=== PATIENT | male | born 2000 | race Caucasian/White ===

== ENCOUNTER 2019-05-19 08:56 | Observation (INO) ==
[2019-05-19] MEDS ORDERED: SODIUM CHLORIDE 0.9% 1000ML 1,000 ML IV SCH (09:30)
[2019-05-19 09:38] LABS: Basophils # (auto) 0.02 K/uL (0-0.2); Basophils % (auto) 0.2 %; Eosinophils # (auto) 0.03 K/uL (0-0.5); Eosinophils % (auto) 0.3 %; Hematocrit (blood only) 44.2 % (42-52); Hemoglobin 15.7 g/dL (14.0-18.0); Immature Granulocytes # (auto) 0.03 K/uL (0.00-0.02); Immature Granulocytes % (auto) 0.3 %; Lymphocytes # (auto) 1.35 K/uL (1.2-3.4); Lymphocytes % (auto) 11.5 %; Mean Corpuscular Hgb Conc 35.5 g/dL (32-36); Mean Corpuscular Volume 88.6 fL (80-100); Mean Platelet Volume 9.7 fL (7.4-10.4); Monocytes # (auto) 1.07 K/uL (0.11-0.59); Monocytes % (auto) 9.1 %; Neutrophils % (auto) 78.6 %; Platelet Count 198 K/uL (130-400); RDW Coefficient of Variation 12.3 % (11.5-14.5); RDW Standard Deviation 38.9 fL (36.4-46.3); Red Blood Count 4.99 M/uL (4.7-6.1)
[2019-05-19 09:51] LABS: iSTAT Creatinine 1.2 mg/dl; iSTAT Ionized Calcium 1.3 mmol/l
[2019-05-19 09:53] LABS: Albumin Level 4.8 gm/dl (3.4-5.0); BUN Creatinine Ratio 14.8 (10-20); Calcium 9.8 mg/dl (8.5-10.1); Est GFR (African American) 97.3
[2019-05-19 09:56] LABS: Albumin Globulin Ratio 1.5 (0.9-2); Bilirubin,Total 1.5 mg/dl (0.2-1); Globulin 3.3 gm/dl (2.5-4.0); Total Protein 8.1 gm/dl (6.4-8.2)
[2019-05-19 10:37] LABS: Appearance Urine Clear (Clear); Bilirubin Urine Negative (Negative); Blood Urine Negative (Negative); Color Urine Yellow; Glucose Urine UA Negative (Negative); Ketones Urine Negative (Negative); Leukocyte Esterase Urine Negative (Negative); Nitrite Urine Negative (Negative); Protein Urine Negative (Negative); Specific Gravity Urine 1.009 (1.000-1.030); Urobilinogen Urine Negative (Negative); pH Urine 7.5 (4.5-7.5)
[2019-05-19] MEDS ORDERED: IOVERSOL 100ml IV PRN (10:47)
--- NOTE | 2019-05-19 10:59 | CT Scan Report ---
CT abd pelvis IV con only CLINICAL HISTORY: Right lower quadrant abdominal pain COMPARISON STUDY: None. TECHNIQUE: The patient was scanned in a dynamic helical fashion during intravenous administration of 93 cc of Optiray 320. A dose lowering technique was utilized adhering to the principles of ALARA. CT DOSE: 448.86 mGy.cm FINDINGS: Lower chest: The heart is normal in size and configuration, without pericardial effusion. The lung ba ses and pleural spaces are clear. Liver: The contrast-enhanced liver is normal in size, contour, and attenuation. There is no intrahepa tic biliary ductal dilatation. The hepatic veins and portal veins are patent. Gallbladder: Unremarkable. Spleen: The spleen is the upper limits of normal in size for age measuring 12.9 cm Pancreas: Unremarkable. Adrenal glands: Unremarkable. Kidneys: There is symmetric renal cortical enhancement. The kidneys are normal in size without hydron ephrosis. Bowel: There are no transition zones indicate bowel obstruction. There is no evidence of acute divert iculitis. There is a dilated thick-walled appendix measuring 12 mm in diameter. There is mild periapp endiceal infiltration. The findings are indicative of acute appendicitis. Peritoneum: There is trace free pelvic fluid present. Vasculature: The abdominal aorta is normal in course and caliber. Adenopathy: None. Pelvic viscera: The bladder, and pelvic viscera are unremarkable. Skeletal structures: No destructive osseous lesions are seen. IMPRESSION: 1. Dilated thick-walled appendix measuring 12 mm in diameter. There is mild periappendiceal infiltrat ion. The findings are indicative of acute appendicitis. Electronically signed by: Lam Owusu M.D. 05/19/2019 10:58 AM
--- NOTE | 2019-05-19 11:48 | Surgery Consultation ---
Date of Consultation May 19, 2019 Assessment & Plan (1) Acute appendicitis: pt is a 19 year-old male who presents to Er with one day history acute abdominal pain, CT scan dx acute appendicitis Plan, I recommend to do laparoscopic appendectomy, possible open, D/W benefits, risk and alternatives of safia surgery, the risks- infection, bleeding, injury bowel, abscess, pt understood, he agrees with the surgery, I answered all questions, History of Present Illness History of Present Illness CC: abdominal pain, HPI: pt is 19 year-old male who presents to ER with one day history abdominal pain, with some nausea, no vomiting, the pain is located at RLQ area, pt denies fever, no diarrhea, pt had CT scan Dx acute appendicitis, pt is health in the past. Allergies Allergy/AdvReac Type Severity Reaction Status Date / Time No Known Allergies Allergy Verified 05/19/19 09:59 Home Medications Home Medications Medication Instructions Recorded Confirmed Type No Known Home Medications 12/08/18 12/08/18 History ibuprofen 200 mg PO Q6H PRN 05/19/19 05/19/19 History Patient History Medical History No active medical problems (Acute) Social History Preferred Language: Ukrainian Feels Safe at Home: Yes Smoking Status: Never smoker Review of Systems Constitutional: as per Subjective / HPI Ear, Nose, Mouth, Throat: as per Subjective / HPI Respiratory: as per Subjective / HPI Cardiovascular: as per Subjective / HPI Gastrointestinal: as per Subjective / HPI Genitourinary: + as per Subjective / HPI Integumentary: as per Subjective / HPI Neurologic: as per Subjective / HPI Psychiatric: as per Subjective / HPI Endocrine: as per Subjective / HPI Hematologic / Lymphatic: as per Subjective / HPI Physical Exam Constitutional: WD/WN, vitals as above well developed and well nourished Neck: trachea midline, no thyromegaly Respiratory: normal respiratory effort, lungs clear to auscultation normal respiratory effort Cardiovascular: RRR, no murmur, no edema Rate/Rhythm: regular rate and regular rhythm Heart Sounds: normal S1 and normal S2 Gastrointestinal (Abdomen): Percussion/Palpation: + abdomen tender and abdomen soft tenderness at RLQ, no rebound pain, no diatend, BS + Musculoskeletal: no cyanosis or clubbing, extremities motor strength 5/5 Neurologic: awake Psychiatric: Orientation: alert and oriented x 3 Results & Data Vital Signs (Past 12 Hours) Vital Signs Temp Pulse Resp BP Pulse Ox 05/19/19 11:38 100 05/19/19 11:30 88 14 137/75 99 05/19/19 11:01 64 10 L 100 05/19/19 11:00 59 L 17 122/55 L 100 05/19/19 10:49 66 12 121/76 97 05/19/19 10:31 49 L 13 100 05/19/19 10:30 57 L 12 116/64 100 05/19/19 10:09 50 L 18 98 05/19/19 10:06 64 12 99 05/19/19 10:01 46 L 14 125/61 98 05/19/19 09:13 36.7 C 78 18 135/77 97 Laboratory Results Abnormal lab results 05/19/19 05/19/19 05/19/19 Range/Units 09:30 09:30 09:36 WBC 11.70 H (4.8-10.8) K/uL Immature Gran # (Auto) 0.03 H (0.00-0.02) K/uL Neut # (Auto) 9.20 H (1.4-6.5) K/uL [place] # (Auto) 1.07 H (0.11-0.59) K/uL POC BUN 20 H (7-18) mg/dl Total Bilirubin 1.5 H (0.2-1) mg/dl Diagnostic Findings CT abd pelvis IV con only CLINICAL HISTORY: Right lower quadrant abdominal pain COMPARISON STUDY: None. TECHNIQUE: The patient was scanned in a dynamic helical fashion during intravenous administration of 93 cc of Optiray 320. A dose lowering technique was utilized adhering to the principles of ALARA. CT DOSE: 448.86 mGy.cm FINDINGS: Lower chest: The heart is normal in size and configuration, without pericardial effusion. The lung bases and pleural spaces are clear. Liver: The contrast-enhanced liver is normal in size, contour, and attenuation. There is no intrahepatic biliary ductal dilatation. The hepatic veins and portal veins are patent. Gallbladder: Unremarkable. Spleen: The spleen is the upper limits of normal in size for age measuring 12.9 cm Pancreas: Unremarkable. Adrenal glands: Unremarkable. Kidneys: There is symmetric renal cortical enhancement. The kidneys are normal in size without hydronephrosis. Bowel: There are no transition zones indicate bowel obstruction. There is no evidence of acute diverticulitis. There is a dilated thick-walled appendix measuring 12 mm in diameter. There is mild periappendiceal infiltration. The findings are indicative of acute appendicitis. Peritoneum: There is trace free pelvic fluid present. Vasculature: The abdominal aorta is normal in course and caliber. Adenopathy: None. Pelvic viscera: The bladder, and pelvic viscera are unremarkable. Skeletal structures: No destructive osseous lesions are seen. IMPRESSION: 1. Dilated thick-walled appendix measuring 12 mm in diameter. There is mild periappendiceal infiltration. The findings are indicative of acute appendicitis.
[2019-05-19] MEDS ORDERED: cefOXitin 2,000 MG/60 ML BAG IV STA (11:52)
--- NOTE | 2019-05-19 11:52 | History & Physical Bridge Note ---
Date of Service May 19, 2019 History & Physical Bridge Note I have examined the patient, reviewed the History & Physical and in the interval since the performance of the History & Physical I have noted the following changes of clinical significance: no changes noted
[2019-05-19] MEDS ORDERED: cefOXitin 2,000 MG in DEXTROSE 5% 50 ML IV SCH (12:00)
--- NOTE | 2019-05-19 13:11 | Emergency Department Note ---
Entered by Tamie Dominguez acting as a scribe for Hollis Goodwin DO History of Present Illness General Chief complaint: Abdominal Pain Stated complaint: ABDOMINAL PAIN Source: patient History of Present Illness Provider complaint: abdominal pain Onset (ago): day(s) (last night) Location: abdomen Pain Consistency: + other (waxing and waning) Maximum Pain Intensity: 3 Quality: + other (pain) Associated symptoms: + denies other symptoms (back pain, blood in his urine, testicular pain); no fever/chills, no nausea/vomiting and no rash The patient is a 19 year old male who presents to the Emergency Department with complaints of waxing and waning abdominal pain that began last night. He states that certain movements exacerbate it. He denies having back pain, testicular pain, or blood in his urine. He also denies rashes, fevers, nausea, and vomiting. He states that his last bowel movement was shortly prior to arrival and states that it was normal. The patient states that he was seen at [facility] and was referred for a CT scan. The patient states that he does not take any medications daily. He denies alcohol and tobacco use. Home Medications Home Medications Medication Instructions Recorded Confirmed Type No Known Home Medications 12/08/18 12/08/18 History ibuprofen 200 mg PO Q6H PRN 05/19/19 05/19/19 History Allergies Allergy/AdvReac Type Severity Reaction Status Date / Time No Known Allergies Allergy Verified 05/19/19 09:59 Past Med/Surg History Medical History Acute appendicitis No active medical problems (Acute) No pertinent past medical history Family History Other Coronary heart disease Myocardial infarction Social History Preferred Language: Azeri Feels Safe at Home: Yes Smoking Status: Never smoker Review of Systems See HPI for pertinent positives & negatives. and A total of 10 systems reviewed and were otherwise negative Physical Exam Vital Signs Vital Signs - 24 hr 05/19/19 09:13 05/19/19 10:01 05/19/19 10:06 Temperature 36.7 C Temperature Source Oral Sepsis Recent Fever Within 48 Hours No Sepsis Action Taken by Nursing No Action Required Pulse Rate 78 46 L 64 Pulse Rate [Apical] Pulse Rate [Left Finger] Pulse Rate from SpO2 Sensor 50 L 61 Pulse Rhythm Pulse Rhythm [Apical] Pulse Rhythm [Left Finger] Pulse Strength [Left Finger] Respiratory Rate 18 14 12 Respiratory Effort / Characteristics Respiratory Depth Respiratory Pattern Blood Pressure 135/77 125/61 Blood Pressure [Right Arm] Blood Pressure Mean 96 82 Blood Pressure Mean [Right Arm] Blood Pressure Position Sitting Blood Pressure Position [Right Arm] Pulse Oximetry 97 98 99 Oxygen Delivery Method Oxygen Flow Rate 05/19/19 10:09 05/19/19 10:30 05/19/19 10:31 Temperature Temperature Source Sepsis Recent Fever Within 48 Hours Sepsis Action Taken by Nursing Pulse Rate 50 L 57 L 49 L Pulse Rate [Apical] Pulse Rate [Left Finger] Pulse Rate from SpO2 Sensor 59 L 48 L Pulse Rhythm Regular Pulse Rhythm [Apical] Pulse Rhythm [Left Finger] Pulse Strength [Left Finger] Respiratory Rate 18 12 13 Respiratory Effort / Characteristics Respiratory Depth Respiratory Pattern Blood Pressure 116/64 Blood Pressure [Right Arm] Blood Pressure Mean 81 Blood Pressure Mean [Right Arm] Blood Pressure Position Blood Pressure Position [Right Arm] Pulse Oximetry 98 100 100 Oxygen Delivery Method Room Air Oxygen Flow Rate 05/19/19 10:49 05/19/19 11:00 05/19/19 11:01 Temperature Temperature Source Sepsis Recent Fever Within 48 Hours Sepsis Action Taken by Nursing Pulse Rate 66 59 L 64 Pulse Rate [Apical] Pulse Rate [Left Finger] Pulse Rate from SpO2 Sensor 75 57 L 65 Pulse Rhythm Pulse Rhythm [Apical] Pulse Rhythm [Left Finger] Pulse Strength [Left Finger] Respiratory Rate 12 17 10 L Respiratory Effort / Characteristics Respiratory Depth Respiratory Pattern Blood Pressure 121/76 122/55 L Blood Pressure [Right Arm] Blood Pressure Mean 91 77 Blood Pressure Mean [Right Arm] Blood Pressure Position Blood Pressure Position [Right Arm] Pulse Oximetry 97 100 100 Oxygen Delivery Method Oxygen Flow Rate 05/19/19 11:30 05/19/19 11:38 05/19/19 12:00 Temperature Temperature Source Sepsis Recent Fever Within 48 Hours Sepsis Action Taken by Nursing Pulse Rate 88 Pulse Rate [Apical] Pulse Rate [Left Finger] Pulse Rate from SpO2 Sensor 86 85 69 Pulse Rhythm Pulse Rhythm [Apical] Pulse Rhythm [Left Finger] Pulse Strength [Left Finger] Respiratory Rate 14 Respiratory Effort / Characteristics Respiratory Depth Respiratory Pattern Blood Pressure 137/75 132/78 Blood Pressure [Right Arm] Blood Pressure Mean 95 96 Blood Pressure Mean [Right Arm] Blood Pressure Position Blood Pressure Position [Right Arm] Pulse Oximetry 99 100 98 Oxygen Delivery Method Oxygen Flow Rate 05/19/19 12:01 05/19/19 12:30 05/19/19 12:31 Temperature Temperature Source Sepsis Recent Fever Within 48 Hours Sepsis Action Taken by Nursing Pulse Rate Pulse Rate [Apical] Pulse Rate [Left Finger] Pulse Rate from SpO2 Sensor 74 59 L 66 Pulse Rhythm Pulse Rhythm [Apical] Pulse Rhythm [Left Finger] Pulse Strength [Left Finger] Respiratory Rate Respiratory Effort / Characteristics Respiratory Depth Respiratory Pattern Blood Pressure 119/64 Blood Pressure [Right Arm] Blood Pressure Mean 82 Blood Pressure Mean [Right Arm] Blood Pressure Position Blood Pressure Position [Right Arm] Pulse Oximetry 98 99 Oxygen Delivery Method Oxygen Flow Rate 05/19/19 13:15 05/19/19 15:23 Temperature 36.9 C 36.7 C Temperature Source Oral Temporal Artery Scan Sepsis Recent Fever Within 48 Hours Sepsis Action Taken by Nursing Pulse Rate Pulse Rate [Apical] 62 Pulse Rate [Left Finger] 74 Pulse Rate from SpO2 Sensor Pulse Rhythm Pulse Rhythm [Apical] Regular Pulse Rhythm [Left Finger] Regular Pulse Strength [Left Finger] Normal Respiratory Rate 18 12 Respiratory Effort / Characteristics Non-Labored Spontaneous Non-Labored Spontaneous Respiratory Depth Normal Normal Respiratory Pattern Regular Regular Blood Pressure Blood Pressure [Right Arm] 139/76 109/68 Blood Pressure Mean Blood Pressure Mean [Right Arm] 97 81 Blood Pressure Position Blood Pressure Position [Right Arm] Sitting Lying Pulse Oximetry 100 98 Oxygen Delivery Method Room Air Oxymask Oxygen Flow Rate 10 GENERAL: Patient is awake, alert, and in no acute distress.Patient is resting comfortably and showing no signs of anxiety EYES: The conjunctivae are clear. The pupils are round and reactive. EARS, NOSE, MOUTH AND THROAT: The nose is without any evidence of any deformity. Mucous membranes are moist.Tongue is midline NECK: The neck is nontender and supple. RESPIRATORY: Normal respiratory effort is noted. There is no evidence of wheezing rhonchi or rales to auscultation. CARDIOVASCULAR: Regular rate and rhythm noted. There no murmurs rubs or gallops normal S1 normal S2 GASTROINTESTINAL: The abdomen is soft. Bowel sounds are present in all quadrants. Right lower quadrant tenderness to palpation. Guarding in the right lower quadrant. BACK: No midline tenderness or or step-off noted range of motion in flexion extension as well as rotation no signs of muscle spasm noted. MUSCULOSKELETAL/EXTREMITIES: There is no evidence of gross deformity. Full range of motion is noted in the hips and shoulders. SKIN: There is no obvious evidence of any rash. There are no petechiae, pallor o r cyanosis noted. NEUROLOGIC: Patient is awake alert and oriented x3. Course 0918: The patient was evaluated in room B2. A history and physical were performed. 1109: I updated the patient. 1116: I discussed the patient's case with Dr. Kumar-General Surgery who will come see the patient. 1130: The patient will be evaluated by Dr. Kumar. Consultations Consultation #1: Dr. Kumar-General Surgery Time: 11:16 Administered Medications Lactated Ringer's (Lr) 1,000 mls @ 80 mls/hr IV .[id number] MYNOR Stop: 06/18/19 16:31 Last Admin: 05/19/19 17:14 Dose: 80 mls/hr Documented by: [id number] Discontinued Medications Bacitracin (Bacitracin) Confirm Administered Dose 45 appln .ROUTE .STK-MED ONE Stop: 05/19/19 14:02 Last Admin: 05/19/19 15:00 Dose: 45 appln Documented by: [id number] Bupivacaine HCl (Marcaine 0.5% Mpf) Confirm Administered Dose 30 ml .ROUTE .STK- MED ONE Stop: 05/19/19 14:02 Last Admin: 05/19/19 15:00 Dose: 30 ml Documented by: [id number] Sodium Chloride (Nss 1000ml) 1,000 mls @ 999 mls/hr IV .[id number] MYNOR Stop: 05/19/19 10:30 Last Infusion: 05/19/19 11:25 Dose: 0 mls/hr Documented by: [id number] Admin: 05/19/19 10:16 Dose: 999 mls/hr Documented by: [id number] Cefoxitin Sodium 2,000 mg/ (Dextrose) 60 mls @ 120 mls/hr IV PREOP MYNOR Stop: 05/19/19 18:00 Last Infusion: 05/19/19 17:44 Dose: 0 mls/hr Documented by: [id number] Admin: 05/19/19 14:15 Dose: 120 mls/hr Documented by: [id number] Ioversol (Optiray 320 100ml) 93 ml IV ONCE PRN PRN Reason: Interaction Checking Stop: 05/23/19 10:46 Last Admin: 05/19/19 10:48 Dose: 93 ml Documented by: [id number] Lidocaine HCl (Xylocaine 1% (Local)) Confirm Administered Dose 20 ml .ROUTE .[employer] ONE Stop: 05/19/19 14:02 Last Admin: 05/19/19 15:01 Dose: 20 ml Documented by: [id number] Medical Decision Making Differential Diagnosis Differential diagnosis: Etiologies such as biliary colic, cholecystitis, hepatitis, pancreatitis, cardiac disease, pancreatitis, gastritis, peptic ulcer disease, appendicitis, cystitis, diverticulitis, mesenteric ischemia, inflammatory bowel disease, ileus, bowel obstruction, testicular torsion, aortic pathology, shingles, as well as others were considered. Medical Records Attestation: I reviewed the patient's medical records. Home Medications Current Medication List: was personally reviewed by me Laboratory Data Attestation: I reviewed the patient's lab results. Result diagrams: 05/19/19 09:30 05/19/19 09:30 Lab Results 05/19/19 05/19/19 05/19/19 Range/Units 09:30 09:30 09:30 WBC 11.70 H (4.8-10.8) K/uL RBC 4.99 (4.7-6.1) M/uL Hgb 15.7 (14.0-18.0) g/dL POC Hgb (14.0-18.0) g/dl Hct 44.2 (42-52) % POC Hct (42-52) % MCV 88.6 (80-100) fL MCH 31.5 (25-34) pg MCHC 35.5 (32-36) g/dL RDW Std Deviation 38.9 (36.4-46.3) fL RDW Coeff of Gino 12.3 (11.5-14.5) % Plt Count 198 (130-400) K/uL MPV 9.7 (7.4-10.4) fL Immature Gran % (Auto) 0.3 % Neut % (Auto) 78.6 % Lymph % (Auto) 11.5 % [place] % (Auto) 9.1 % Eos % (Auto) 0.3 % Baso % (Auto) 0.2 % Immature Gran # (Auto) 0.03 H (0.00-0.02) K/uL Neut # (Auto) 9.20 H (1.4-6.5) K/uL Lymph # (Auto) 1.35 (1.2-3.4) K/uL [place] # (Auto) 1.07 H (0.11-0.59) K/uL Eos # (Auto) 0.03 (0-0.5) K/uL Baso # (Auto) 0.02 (0-0.2) K/uL POC Sodium (135-144) mEq/L Sodium 139 (136-145) mmol/L POC Potassium (3.3-5.0) mEq/L Potassium 4.0 (3.5-5.1) mmol/L POC Chloride (101-112) mEq/L Chloride 103 (98-107) mmol/L Carbon Dioxide 30 (21-32) mmol/L POC Total CO2 (24-31) mEq/l Anion Gap 6.0 (3-11) POC Anion Gap (16-25) mmol/L POC BUN (7-18) mg/dl BUN 18 (7-18) mg/dl Creatinine 1.23 (0.6-1.4) mg/dl POC Creatinine mg/dl Est Cr Clr Drug Dosing 102.0 ml/min Est GFR ( Amer) 97.3 Est GFR (Non-Af Amer) 84.0 BUN/Creatinine Ratio 14.8 (10-20) Glucose 92 (70-99) mg/dl POC Glucose (other) (70-99) mg/dl Calcium 9.8 (8.5-10.1) mg/dl POC Ioniz Calcium Camilla mmol/l Total Bilirubin 1.5 H (0.2-1) mg/dl AST 19 (15-37) U/L ALT 23 (12-78) U/L Alkaline Phosphatase 82 (45-117) U/L Total Protein 8.1 (6.4-8.2) gm/dl Albumin 4.8 (3.4-5.0) gm/dl Globulin 3.3 (2.5-4.0) gm/dl Albumin/Globulin Ratio 1.5 (0.9-2) Lipase 128 (73-393) U/L Urine Color Yellow Urine Appearance Clear (Clear) Urine pH 7.5 (4.5-7.5) Ur Specific [place] 1.009 (1.000-1.030) Urine Protein Negative (Negative) Urine Glucose (UA) Negative (Negative) Urine Ketones Negative (Negative) Urine Blood Negative (Negative) Urine Nitrite Negative (Negative) Urine Bilirubin Negative (Negative) Urine Urobilinogen Negative (Negative) Ur Leukocyte Esterase Negative (Negative) 05/19/19 Range/Units 09:36 WBC (4.8-10.8) K/uL RBC (4.7-6.1) M/uL Hgb (14.0-18.0) g/dL POC Hgb 16.0 (14.0-18.0) g/dl Hct (42-52) % POC Hct 47 (42-52) % MCV (80-100) fL MCH (25-34) pg MCHC (32-36) g/dL RDW Std Deviation (36.4-46.3) fL RDW Coeff of Gino (11.5-14.5) % Plt Count (130-400) K/uL MPV (7.4-10.4) fL Immature Gran % (Auto) % Neut % (Auto) % Lymph % (Auto) % [place] % (Auto) % Eos % (Auto) % Baso % (Auto) % Immature Gran # (Auto) (0.00-0.02) K/uL Neut # (Auto) (1.4-6.5) K/uL Lymph # (Auto) (1.2-3.4) K/uL [place] # (Auto) (0.11-0.59) K/uL Eos # (Auto) (0-0.5) K/uL Baso # (Auto) (0-0.2) K/uL POC Sodium 140 (135-144) mEq/L Sodium (136-145) mmol/L POC Potassium 4.0 (3.3-5.0) mEq/L Potassium (3.5-5.1) mmol/L POC Chloride 101 (101-112) mEq/L Chloride (98-107) mmol/L Carbon Dioxide (21-32) mmol/L POC Total CO2 27 (24-31) mEq/l Anion Gap (3-11) POC Anion Gap 18.0 (16-25) mmol/L POC BUN 20 H (7-18) mg/dl BUN (7-18) mg/dl Creatinine (0.6-1.4) mg/dl POC Creatinine 1.2 mg/dl Est Cr Clr Drug Dosing ml/min Est GFR ( Amer) Est GFR (Non-Af Amer) BUN/Creatinine Ratio (10-20) Glucose (70-99) mg/dl POC Glucose (other) 92 (70-99) mg/dl Calcium (8.5-10.1) mg/dl POC Ioniz Calcium Camilla 1.30 mmol/l Total Bilirubin (0.2-1) mg/dl AST (15-37) U/L ALT (12-78) U/L Alkaline Phosphatase (45-117) U/L Total Protein (6.4-8.2) gm/dl Albumin (3.4-5.0) gm/dl Globulin (2.5-4.0) gm/dl Albumin/Globulin Ratio (0.9-2) Lipase (73-393) U/L Urine Color Urine Appearance (Clear) Urine pH (4.5-7.5) Ur Specific [place] (1.000-1.030) Urine Protein (Negative) Urine Glucose (UA) (Negative) Urine Ketones (Negative) Urine Blood (Negative) Urine Nitrite (Negative) Urine Bilirubin (Negative) Urine Urobilinogen (Negative) Ur Leukocyte Esterase (Negative) Imaging Data Radiologist's Impression: Radiology results as stated below per my review and the radiologist's interpretation: CT abd pelvis IV con only CLINICAL HISTORY: Right lower quadrant abdominal pain COMPARISON STUDY: None. TECHNIQUE: The patient was scanned in a dynamic helical fashion during intravenous administration of 93 cc of Optiray 320. A dose lowering technique was utilized adhering to the principles of ALARA. CT DOSE: 448.86 mGy.cm FINDINGS: Lower chest: The heart is normal in size and configuration, without pericardial effusion. The lung bases and pleural spaces are clear. Liver: The contrast-enhanced liver is normal in size, contour, and attenuation. There is no intrahepatic biliary ductal dilatation. The hepatic veins and portal veins are patent. Gallbladder: Unremarkable. Spleen: The spleen is the upper limits of normal in size for age measuring 12.9 cm Pancreas: Unremarkable. Adrenal glands: Unremarkable. Kidneys: There is symmetric renal cortical enhancement. The kidneys are normal in size without hydronephrosis. Bowel: There are no transition zones indicate bowel obstruction. There is no evidence of acute diverticulitis. There is a dilated thick-walled appendix measuring 12 mm in diameter. There is mild periappendiceal infiltration. The findings are indicative of acute appendicitis. Peritoneum: There is trace free pelvic fluid present. Vasculature: The abdominal aorta is normal in course and caliber. Adenopathy: None. Pelvic viscera: The bladder, and pelvic viscera are unremarkable. Skeletal structures: No destructive osseous lesions are seen. IMPRESSION: 1. Dilated thick-walled appendix measuring 12 mm in diameter. There is mild periappendiceal infiltration. The findings are indicative of acute appendicitis. Electronically signed by: Lam Owusu M.D. 05/19/2019 10:58 AM Blood Pressure Blood Pressure Findings: Normal blood pressure MDM Narrative The patient is a 19-year-old male who presented to the emergency department for an evaluation of right-sided abdominal pain. The patient was initially seen at [facility] for similar complaints. He was sent to the emergency department for further work-up due to concern for appendicitis. The patient's history and physical exam appear to be consistent with appendicitis. White blood cell count was mildly elevated. For this reason CT the abdomen and pelvis was it appeared to be consistent with acute appendicitis. I discussed the patient's laboratory and radiographic studies with him. He was treated with IV fluids but did not wish to have any pain medication at this time. Because of his findings I discussed his case with the on-call general surgeon. They have agreed to evaluate the patient in the emergency department for further management and disposition. Impression & Plan Acute appendicitis Discharge Plan Visit Data Chief Complaint: Abdominal Pain Stated Complaint: ABDOMINAL PAIN ED Provider: Hollis Goodwin Discharge Problem: Acute appendicitis Patient Disposition: Being Evaluated by Surgeon Discharge Instructions Interventions: ED Discharge Assessment Last Done: 05/19/19 13:09 Discharge Problem: Acute appendicitis Qualifiers: Acute appendicitis type: unspecified acute appendicitis type Qualified Code(s): K35.80 - Unspecified acute appendicitis The scribe's documentation has been prepared under my direction and personally reviewed by me in its entirety. I confirm that the note above accurately reflects all work, treatment, procedures, and medical decision making performed by me.
--- NOTE | 2019-05-19 13:18 | Anesthesiology Consultation ---
Date of Service May 19, 2019 Assessment & Plan (1) Encounter for pre-operative examination: Chart Review Chart Review: Acceptable Risk for Surgery and Patient NOT seen in Pre Admission Testing Consults Requested none ASA [id number] Proposed Anesthesia Anesthesia Type: General History Surgery Operation Date: 05/19/19 18:45 Proposed Procedures p Laparoscopic Appendectomy - Farshad Kumar MD Height/Weight Height: 5 ft 11 in Weight: 89.8 kg Allergies Allergy/AdvReac Type Severity Reaction Status Date / Time No Known Allergies Allergy Verified 05/19/19 09:59 Medications Home Medications Medication Instructions Recorded Confirmed Last Taken No Known Home Medications 12/08/18 12/08/18 Unknown ibuprofen 200 mg PO Q6H PRN 05/19/19 05/19/19 05/18/19 23:00 600mg Active Medications Generic Name Dose Route Start Last Admin Trade Name Freq PRN Reason Stop Dose Admin Ioversol 93 ml 05/19/19 10:47 05/19/19 10:48 Optiray 320 100ml IV 05/23/19 10:46 93 ml ONCE PRN Administration Interaction Checking NPO Date Last Intake of Fluids: 05/19/19 Time Last Intake of Fluids: 07:30 Date Last Intake of Solids: 05/19/19 Time Last Intake of Solids: 07:30 Past Medical History Medical History Acute appendicitis No active medical problems (Acute) No pertinent past medical history Past Family History Family History Other Coronary heart disease Myocardial infarction Social History Smoking Status: Never smoker Physical Exam Vital Signs Last Vital Signs Temp 36.7 C 05/19/19 09:13 Pulse 88 05/19/19 11:30 Resp 14 05/19/19 11:30 BP 119/64 05/19/19 12:30 Pulse Ox 99 05/19/19 12:31 Testing Laboratory Results 05/19/19 09:30 05/19/19 09:30 Urine Color Yellow 05/19/19 09:30 Urine Appearance Clear (Clear) 05/19/19 09:30 Urine pH 7.5 (4.5-7.5) 05/19/19 09:30 Ur Specific [place] 1.009 (1.000-1.030) 05/19/19 09:30 Urine Protein Negative (Negative) 05/19/19 09:30 Urine Glucose (UA) Negative (Negative) 05/19/19 09:30 Urine Ketones Negative (Negative) 05/19/19 09:30 Urine Nitrite Negative (Negative) 05/19/19 09:30 Ur Leukocyte Esterase Negative (Negative) 05/19/19 09:30 05/19/19 09:36 POC Glucose (other) 92
[2019-05-19] MEDS ORDERED: GLYCOPYRROLATE 0.2 MG/ML VIAL ONE (13:33)
[2019-05-19] MEDS ORDERED: PROPOFOL IV EMULSION 10 MG/ML 20 ML VIAL IV ONE (13:33)
[2019-05-19] MEDS ORDERED: DEXAMETHASONE SOD INJ 4 MG/ML VIAL ONE (13:33)
[2019-05-19] MEDS ORDERED: MIDAZOLAM HCL 1 MG/ML 2ML VIAL ONE (13:33)
[2019-05-19] MEDS ORDERED: fentaNYL citrate 100 MCG/2 ML VIAL ONE (13:33)
[2019-05-19] MEDS ORDERED: ONDANSETRON INJ 2 MG/ML 2 ML VIAL ONE (13:33)
[2019-05-19] MEDS ORDERED: LIDOCAINE HCL 2% 2 ML VIAL/AMP(20MG/ML) INFIL ONE (13:33)
[2019-05-19] MEDS ORDERED: NEOSTIGMINE METHYLSULFATE 5 MG/5 ML SYR ONE (13:33)
[2019-05-19] MEDS ORDERED: BACITRACIN OINT 15 GM TUBE ONE (14:01)
[2019-05-19] MEDS ORDERED: BUPIVACAINE 0.5 % 5 MG/1 ML MPF 30ML VIAL ONE (14:01)
[2019-05-19] MEDS ORDERED: LIDOCAINE HCL 1% 20 ML VIAL ONE (14:01)
[2019-05-19] MEDS ORDERED: ePHEDrine sulfate 50 MG/ML AMP IV PRN (14:29)
[2019-05-19] MEDS ORDERED: HYDROmorphone INJ 2 MG/ML SYR/VIAL IV PRN (14:29)
[2019-05-19] MEDS ORDERED: ATROPINE SULFATE 0.1 MG/ML 10ML SYR IV PRN (14:29)
[2019-05-19] MEDS ORDERED: ROCURONIUM BROMIDE 10 MG/ML 5 ML VIAL ONE (14:53)
[2019-05-19] MEDS ORDERED: KETOROLAC 30 MG/ML VIAL ONE (14:53)
[2019-05-19] MEDS ORDERED: SUCCINYLCHOLINE CHLORIDE 20 MG/ML 10 ML VIAL ONE (14:55)
--- NOTE | 2019-05-19 14:59 | Post Operative Brief Note ---
Immediate Post Op Note v1 Date of Surgery May 19, 2019 Pre & Post Diagnosis Operation Date: 05/19/19 18:45 pre-op diagnosis: acute appendicitis post-op diagnosis: acute appendicitis Procedure Operation Date: 05/19/19 18:45 Actual Procedures p Laparoscopic Appendectomy(Not Applicable) - Farshad Kumar MD Surgeon Farshad Kumar MD Set Up And Lay Out Inspector SPENSER Krueger Estimated Blood Loss 5 Findings Consistent with Post-Op Diagnosis Fluids 1000ml Specimens appendix Anesthesia Type General Complications none Disposition Accompanied Patient To Recovery: Yes Disposition: Recovery Room Overlapping Procedure I was immediately available: during the entire case.
[2019-05-19] MEDS ORDERED: OXYCODONE/ACETAMINOPHEN 5mg/325mg TAB PO PRN (15:09)
[2019-05-19] MEDS ORDERED: ONDANSETRON INJ 2 MG/ML 2 ML VIAL IV PRN (16:32)
[2019-05-19] MEDS ORDERED: ACETAMINOPHEN 325 MG TAB PO PRN (16:32)
[2019-05-19] MEDS ORDERED: HYDROmorphone INJ 0.5 MG/0.5 ML SYR IV PRN (16:32)
[2019-05-19] MEDS: LACTATED RINGER'S 1,000 ML IV SCH (17:14)
--- NOTE | 2019-05-19 18:20 | Anesthesiology Progress Note ---
Date of Service May 19, 2019 Anesthesia Post Procedure Vital Signs Vital Signs: Temp Pulse Pulse Pulse Pulse Resp BP 05/19/19 17:32 37.3 C 59 L 16 05/19/19 17:00 37.3 C 52 L 16 05/19/19 16:30 37.2 C 54 L 14 05/19/19 16:10 36.9 C 46 L 16 05/19/19 16:00 36.9 C 45 L 16 05/19/19 15:49 60 13 05/19/19 15:40 49 L 19 05/19/19 15:30 54 L 12 05/19/19 15:23 36.7 C 62 12 05/19/19 13:15 36.9 C 74 18 05/19/19 12:31 05/19/19 12:30 119/64 05/19/19 12:00 132/78 05/19/19 11:38 05/19/19 11:30 88 14 137/75 05/19/19 11:01 64 10 L 05/19/19 11:00 59 L 17 122/55 L 05/19/19 10:49 66 12 121/76 05/19/19 10:31 49 L 13 05/19/19 10:30 57 L 12 116/64 05/19/19 10:09 50 L 18 05/19/19 10:06 64 12 05/19/19 10:01 46 L 14 125/61 05/19/19 09:13 36.7 C 78 18 135/77 BP Pulse Ox 05/19/19 17:32 123/70 97 05/19/19 17:00 120/69 98 05/19/19 16:30 117/70 99 05/19/19 16:10 116/60 97 05/19/19 16:00 121/60 98 05/19/19 15:49 123/69 94 05/19/19 15:40 117/71 100 05/19/19 15:30 122/66 98 05/19/19 15:23 109/68 98 05/19/19 13:15 139/76 100 05/19/19 12:31 99 05/19/19 12:30 98 05/19/19 12:00 98 05/19/19 11:38 100 05/19/19 11:30 99 05/19/19 11:01 100 05/19/19 11:00 100 05/19/19 10:49 97 05/19/19 10:31 100 05/19/19 10:30 100 05/19/19 10:09 98 05/19/19 10:06 99 05/19/19 10:01 98 05/19/19 09:13 97 Pain Intensity Right Lower Abdomen: Pain Intensity: 2 Bilateral Anterior Abdomen: Pain Intensity: 2 Transfer of Care Handoff Completed per policy Notes Mental Status: alert / awake / arousable Patient Amnestic to Procedure: Yes Nausea / Vomiting: adequately controlled Pain: adequately controlled Airway Patency, RR, SpO2: stable & adequate BP & HR: stable & adequate Hydration State: stable & adequate Anesthetic Complications: no major complications apparent
[2019-05-19] MEDS: IBUPROFEN 200 MG TAB PO PRN ×2 (23:05→23:24)
--- NOTE | 2019-05-19 23:41 | Operative Report ---
DATE OF OPERATION: 05/19/2019 PREOPERATIVE DIAGNOSIS: Acute appendicitis. POSTOPERATIVE DIAGNOSIS: Acute appendicitis. SURGEON: Farshad Kumar MD PROCEDURE: Laparoscopic appendectomy. ANESTHESIA: General. ESTIMATED BLOOD LOSS: About 5 mL FINDINGS: Acute appendicitis. COMPLICATIONS: None. INDICATIONS FOR THE PROCEDURE: This is a 19-year-old gentleman who presented to ED with 1-day history of abdominal pain. The patient had a CT scan and diagnosed with acute appendicitis. I recommended to do laparoscopic appendectomy, possible open. I did talk to the patient about the benefit and risk, alternate procedure. I indicated the risks may include but not limited such as bleeding, infection, abscess, injury to the bowel. The patient understands. He signed informed consent and I answered all questions. DETAILS OF PROCEDURE: We brought the patient to the OR, put the patient in the supine position. The patient received SCD on bilateral legs to prevent DVT. Also, the patient received 2 grams cefoxitin IV for prophylactic antibiotic. The patient received general anesthesia without difficulty. Then the patient received Junior catheter insertion. The abdomen was prepped and draped in routine sterile fashion. After time out, I injected local anesthesia by using 1% lidocaine mixed with 0.5% Marcaine just above the umbilicus. Then I made a small incision just above the umbilicus, opened fascia and opened peritoneum under direct vision, put a Renay trocar in, connected to CO2 to create pneumoperitoneum. Flow rate at 6 liter per minute. Pressure not more than 14 mmHg. Once we got a nice pneumoperitoneum, we put the camera in, looked around the abdomen showed normal finding on the small bowel, large bowel; however, the appendix was significantly enlarged, inflammation confirmed diagnosis of acute appendicitis. Then, we put another two 5 mm trocar on the left lower quadrant area. Then we used a grasper to hold the appendix. I used Harmonic to take down the appendiceal, rechecked, no active bleeding. Then, we used a 45 mm Endo-SASHA staple for transection on the base of the appendix, rechecked the staple line intact. No active bleeding, no leak. Then we removed the appendix through the catcher bag. Then we reinserted Renay trocar in, connected to CO2 to create pneumoperitoneum. Again looked around the abdomen, no active bleeding, no leak from the staple line. Then we removed all trocar under direct vision. No active bleeding from the trocar sites. Pneumoperitoneum was released. Then I closed the umbilical incision, fascial layer by using #1 Vicryl [id number] x2, closed subcutaneous layer by using 2-0 Vicryl interruptedly, closed skin by using 4-0 Vicryl continuous running, closed another two 5 mm trocar site of skin only by using 4-0 Vicryl. Then we put the dressing on. The patient tolerated the procedure well. All the instrument, needle and sponge count were correct x2 at the end of case. The patient transferred to Recovery Room in stable condition. The specimen sent to Pathology. I attest to the content of the Intraoperative Record and any orders documented therein. Any exception s are noted below.
[2019-05-20] MEDS: LACTATED RINGER'S 1,000 ML IV SCH (03:27)
[2019-05-20 05:37] LABS: Hematocrit (blood only) 40.1 % (42-52); Hemoglobin 13.8 g/dL (14.0-18.0); Immature Granulocytes # (auto) 0.02 K/uL (0.00-0.02); Immature Granulocytes % (auto) 0.2 %; Lymphocytes # (auto) 0.98 K/uL (1.2-3.4); Lymphocytes % (auto) 9.9 %; Mean Corpuscular Hgb Conc 34.4 g/dL (32-36); Mean Corpuscular Volume 90.3 fL (80-100); Mean Platelet Volume 9.6 fL (7.4-10.4); Monocytes # (auto) 0.83 K/uL (0.11-0.59); Monocytes % (auto) 8.4 %; Neutrophils # (auto) 8.09 K/uL (1.4-6.5); Neutrophils % (auto) 81.5 %; Platelet Count 190 K/uL (130-400); RDW Standard Deviation 39.4 fL (36.4-46.3); Red Blood Count 4.44 M/uL (4.7-6.1); White Blood Count 9.92 K/uL (4.8-10.8)
--- NOTE | 2019-05-20 08:19 | Anesthesiology Progress Note ---
Date of Service May 20, 2019 Anesthesia Post Procedure Vital Signs Vital Signs: Temp Pulse Pulse Pulse Pulse Resp BP 05/20/19 03:21 36.6 C 58 L 18 05/19/19 23:18 37.1 C 49 L 18 05/19/19 19:30 37.0 C 55 L 16 05/19/19 18:33 37.3 C 69 16 05/19/19 17:32 37.3 C 59 L 16 05/19/19 17:00 37.3 C 52 L 16 05/19/19 16:30 37.2 C 54 L 14 05/19/19 16:10 36.9 C 46 L 16 05/19/19 16:00 36.9 C 45 L 16 05/19/19 15:49 60 13 05/19/19 15:40 49 L 19 05/19/19 15:30 54 L 12 05/19/19 15:23 36.7 C 62 12 05/19/19 13:15 36.9 C 74 18 05/19/19 12:31 05/19/19 12:30 119/64 05/19/19 12:00 132/78 05/19/19 11:38 05/19/19 11:30 88 14 137/75 05/19/19 11:01 64 10 L 05/19/19 11:00 59 L 17 122/55 L 05/19/19 10:49 66 12 121/76 05/19/19 10:31 49 L 13 05/19/19 10:30 57 L 12 116/64 05/19/19 10:09 50 L 18 05/19/19 10:06 64 12 05/19/19 10:01 46 L 14 125/61 05/19/19 09:13 36.7 C 78 18 135/77 BP Pulse Ox 05/20/19 03:21 106/58 L 98 05/19/19 23:18 119/62 95 05/19/19 19:30 112/66 97 05/19/19 18:33 126/61 98 05/19/19 17:32 123/70 97 05/19/19 17:00 120/69 98 05/19/19 16:30 117/70 99 05/19/19 16:10 116/60 97 05/19/19 16:00 121/60 98 07/15/19 15:49 123/69 94 07/15/19 15:40 117/71 100 05/19/19 15:30 122/66 98 05/19/19 15:23 109/68 98 05/19/19 13:15 139/76 100 05/19/19 12:31 99 05/19/19 12:30 98 05/19/19 12:00 98 05/19/19 11:38 100 05/19/19 11:30 99 05/19/19 11:01 100 05/19/19 11:00 100 05/19/19 10:49 97 05/19/19 10:31 100 05/19/19 10:30 100 05/19/19 10:09 98 05/19/19 10:06 99 05/19/19 10:01 98 05/19/19 09:13 97 Pain Intensity Right Lower Abdomen: Pain Intensity: 2 Bilateral Anterior Abdomen: Pain Intensity: 2 Notes Mental Status: alert / awake / arousable and participated in evaluation Nausea / Vomiting: adequately controlled Pain: adequately controlled Airway Patency, RR, SpO2: stable & adequate BP & HR: stable & adequate Hydration State: stable & adequate
--- NOTE | 2019-05-20 09:21 | Surgery Progress Note ---
Date of Service May 20, 2019 Assessment & Plan (1) Acute appendicitis: POD # 1 s/p laparoscopic appendectomy -vitals stable, afebrile - preop pain resolved, post op pain at incision sites and minimal - no n/v, tolerating diet - urinating without difficulty - leukocytosis resolved Plan: encouraged ambulating in hallway this morning d/c iv fluids and abx continue regular diet discharge home later this morning if tolerates ambulation will f/u with pcp in 1-2 weeks since lives 3-4 hours away discharge instructions/postop restrictions reviewed Discussed with Dr. Kumar who agrees with above Subjective feeling good no nausea or vomiting, tolerating diet preoperative pain resolved, postop pain at incisions and minimal. only had Aleve last night urinating okay, having some burning during urination, no frequency or urgency ambulated only to bathroom not hallway no chest pain/sob/dizziness Physical Exam Constitutional: WD/WN, vitals as above no acute distress and not ill appearing Respiratory: normal respiratory effort; no respiratory distress Gastrointestinal (Abdomen): Inspection/Auscultation: abdomen not distended Percussion/Palpation: + abdomen tender (mild at incision sites) and abdomen soft; no guarding and abdomen not rigid Skin: no rashes, warm and dry + incision (Covered with dry dressings intact) Psychiatric: A+Ox3, euthymic affect Results & Data Vital Signs (Past 12 Hours) Vital Signs Temp Pulse Pulse Resp BP Pulse Ox 05/20/19 09:14 36.6 C 46 L 58 L 18 106/58 L 98 05/20/19 03:21 36.6 C 58 L 18 106/58 L 98 05/19/19 23:18 37.1 C 49 L 18 119/62 95 Laboratory Results 05/20/19 05/19/19 05/19/19 Range/Units 05:27 09:30 09:30 WBC 9.92 (4.8-10.8) K/uL RBC 4.44 L (4.7-6.1) M/uL Hgb 13.8 L (14.0-18.0) g/dL Hct 40.1 L (42-52) % MCV 90.3 (80-100) fL MCH 31.1 (25-34) pg MCHC 34.4 (32-36) g/dL RDW Std Deviation 39.4 (36.4-46.3) fL RDW Coeff of Gino 12.0 (11.5-14.5) % Plt Count 190 (130-400) K/uL MPV 9.6 (7.4-10.4) fL Immature Gran % (Auto) 0.2 % Neut % (Auto) 81.5 % Lymph % (Auto) 9.9 % [place] % (Auto) 8.4 % Eos % (Auto) 0.0 % Baso % (Auto) 0.0 % Immature Gran # (Auto) 0.02 (0.00-0.02) K/uL Neut # (Auto) 8.09 H (1.4-6.5) K/uL Lymph # (Auto) 0.98 L (1.2-3.4) K/uL [place] # (Auto) 0.83 H (0.11-0.59) K/uL Eos # (Auto) 0.00 (0-0.5) K/uL Baso # (Auto) 0.00 (0-0.2) K/uL Total Bilirubin 1.5 H (0.2-1) mg/dl Alkaline Phosphatase 82 (45-117) U/L Total Protein 8.1 (6.4-8.2) gm/dl Globulin 3.3 (2.5-4.0) gm/dl Albumin/Globulin Ratio 1.5 (0.9-2) Urine Color Yellow Urine Appearance Clear (Clear) Urine pH 7.5 (4.5-7.5) Ur Specific [place] 1.009 (1.000-1.030) Urine Protein Negative (Negative) Urine Glucose (UA) Negative (Negative) Urine Ketones Negative (Negative) Urine Blood Negative (Negative) Urine Nitrite Negative (Negative) Urine Bilirubin Negative (Negative) Urine Urobilinogen Negative (Negative) Ur Leukocyte Esterase Negative (Negative) (1) Acute appendicitis Acute appendicitis type: unspecified acute appendicitis type Qualified Code(s): K35.80 - Unspecified acute appendicitis
--- NOTE | 2019-05-20 11:23 | Discharge Summary ---
Date of Service May 20, 2019 Admission HPI Per Admitting Provider HPI: pt is 19 year-old male who presents to ER with one day history abdominal pain, with some nausea, no vomiting, the pain is located at RLQ area, pt denies fever, no diarrhea, pt had CT scan Dx acute appendicitis, pt is health in the past. Principal Diagnosis Acute appendicitis Discharge Data Allergies Allergy/AdvReac Type Severity Reaction Status Date / Time No Known Allergies Allergy Verified 05/19/19 09:59 Procedures Performed Operation Date: 05/19/19 18:45 Actual Procedures p Laparoscopic Appendectomy(Not Applicable) - Farshad Kumar MD Ordered Studies 05/19/19 09:26 CT abd pelvis IV con only Stat Hospital Course (1) Acute appendicitis: Patient taken to operating room for emergency department for laparoscopic appendectomy possible open by Dr. Kumar. Patient found to have acute appendicitis without perforation or abscess. Patient tolerated procedure well and transferred to recovery and then to medical/surgical floor for postoperative care. IV fluids at 100 mls/hr, PO Peroccet with IV Dilaudid prn pain, IV Zofran prn nausea, clear liquid diet and advanced as tolerated, activity as tolerated, scds for dvt prophylaxis. POD # 1 vitals stable, afebrile, post op pain minimal, urinating with some dysuria but no frequency or urgency symptoms, tolerating regular diet, no n/v. Patients UA in the ER was clean, no concern for infection. Dysuria likely secondary to Junior catheter. Patient discharged home on POD # 1 in stable condition. Discharge instructions were reviewed with patient and mother. Patient to follow-up with PCP back home (3-4 hours away) in 1-2 weeks. Advised to call office next to go over pathology report and check in. Total Time Total Time Spent Total Time Spent (In Minutes): 30 Total Time Includes: Examination of the Patient, Discharge Planning and Medication Reconciliation Discharge Plan Discharge Items Patient Disposition: Home - Self-Care Reason For Visit: ACUTE APPENDICITIS Discharge Diagnosis: Same Discharge Goals: Decrease discomfort and Improve function Activity: Per 'Additional Instructions' section Non-emergency contact: Primary Care Provider and Surgeon Call non-emergency contact if: your pain is not controlled, your pain is unusual for you, your pain is concerning for you, you have a fever, your temperature is above 101, your wound has increased redness, your wound has increased drainage and your wound pain has increased Follow-up/Referrals: PCP,DIMA [Primary Care Provider] - Diet: Regular Addtl Provider Instructions: No heavy lifting over 20 pounds for 3-4 weeks No strenuous activity until cleared by surgeon No submerging incisions underwater for 2 weeks (No bathing, swimming, or hot tubs) No driving while taking narcotic pain medication or until you are pain free You may shower completely in 3 days. Leave dressings on for 3 days, sponge bath and wash hair in meantime. After 3 days, remove dressings and shower. Pat incisions dry. Leave steri strips on incisions for 7 days and then remove. They may fall off on their own that is okay. Walking and light activity is encouraged daily to prevent blood clots from forming in your legs. You will be given prescription for narcotic pain medication (Percocet) for moderate to severe pain. Take as directed. This medication may cause drows iness and constipation. You may take extra strength Tylenol (650 mg every 6 hours) or Ibuprofen (600 mg every 6 hours) as needed for mild pain To avoid constipation, you may take OTC stool softener (Colace) while taking narcotic pain medication. Drink plenty of water Follow-up with your primary care physician in 1-2 weeks. Call office at [phone] in about 1 week to discuss pathology results. Prescriptions: New oxycodone-acetaminophen [Percocet] 5-325 mg Tablet 1 tab PO Q4H PRN (Reason: pain) Qty: 10 RF: 0 Continued ibuprofen 200 mg Tablet 200 mg PO Q6H PRN (Reason: Pain) RF: 0 Stand-Alone [facility]: [email or web address], [facility], Work/School Release (Inpt) Discharge Orders: Discharge Order (Routine); Ordered 05/20/19 Ordered By: Bianca Marie Admission Data Admit Date/Time: 05/19/19 15:24 Attending Provider: Farshad Kumar Admit Provider: Farshad Kumar Primary Care Provider: DIMA ROTHMAN Service: Surgical Services Other Interventions: Discharge Summary Assessment (RN) Last Done: 05/20/19 09:14 Pending Studies at Discharge: Yes (appendix pathology, will be reviewed at follow-up phone call) DC Date/Time DO NOT enter until pt leaves facility: 05/20/19 10:03
== END 2019-05-20 10:03 | disposition home or self-care (01) ==
LOC: MERGE 08:56 → 3E 08:56 → ED 08:56 → 3E 13:09
DX: K35.80 Unspecified acute appendicitis; R11.0 Nausea